=== PATIENT | male | born 1995 | race Caucasian/White ===

== ENCOUNTER 2017-04-26 10:42 | Emergency (ER) | payer BC ==
[~2017-04-26] VITALS: Ht 182.9 cm; Wt 69.6 kg
[2017-04-26 11:01] VITALS: TEMP 37.5; Ht 182.9 cm; Wt 69.6 kg
[2017-04-26] MEDS ORDERED: IBUPROFEN 600 MG TAB PO STA (12:39)
--- NOTE | 2017-04-26 12:44 | EMERGENCY ROOM VISIT NOTE ---
History Report prepared by Sally: Grace Damian Under the Supervision of: Dr. Jessi Pineda M.D. First contact with patient: 12:33 Chief Complaint: ILLNESS Stated Complaint: SWOLLEN LYMPH NODE History of Present Illness The patient is a 21 year old male who presents to the Emergency Room with complaints of a constant swollen lymph node beginning a couple days ago. The patient notes pain with swallowing. He denies having the flu recently. He denies any fever, vomiting, respiratory difficulties, or pain with biting down. The patient has no active medical problems. The patient is fully vaccinated. Source of History: patient Onset: a couple days ago Position: other (swollen lymph node) Timing: constant Modifying Factors (Worsening): other (swallowing) Associated Symptoms: + sorethroat, No fevers, No SOB, No vomiting Review of Systems See HPI for pertinent positives & negatives. A total of 10 systems reviewed and were otherwise negative. Past Medical & Surgical Medical Problems: (1) No Known Active Medical Problems Family History Patient reports no known family medical history. Social History Smoking Status: Never Smoker Marital Status: single Housing Status: lives with roommate Occupation Status: [employer] student Current/Historical Medications Scheduled Amoxicillin & Pot Clavulanate (Augmentin 875-125 mg), 875 MG PO BID Allergies Coded Allergies: No Known Allergies (Unverified , 04/26/17) Physical Exam Vital Signs Date Time Temp Pulse Resp B/P (MAP) Pulse Ox O2 Delivery O2 Flow Rate FiO2 04/26/17 14:10 95 18 144/79 100 04/26/17 12:32 101 150/88 98 Room Air 04/26/17 11:01 37.5 104 18 138/68 97 Room Air Physical Exam Vital signs reviewed. General: Well-appearing male, in no significant distress. HEENT: No scleral icterus, PERRLA, neck supple. Atraumatic. 2 cm palpable lymph node to the left submandibular region, no surrounding erythema mildly tender. No submental swelling no airway impingement. Cardiovascular: Regular rate and rhythm, no extra sounds. Pulmonary: Clear to auscultation bilaterally, normal work of breathing. Neurologic: Patient awake alert and oriented x 3, no meningeal signs Skin: Warm, dry, no rash Medical Decision & Procedures Laboratory Results Laboratory results per my review. Medications Administered Medications (Trade) Dose Ordered Sig/Any Route Start Time Stop Time Status Last Admin Dose Admin Ibuprofen (Motrin Tab) 600 mg NOW STAT PO 04/26/17 12:39 04/26/17 12:40 DC 04/26/17 12:56 600 MG Amoxicillin/ Clavulanate Potassium (Augmentin Tab) 875 mg NOW ONCE PO 04/26/17 12:45 04/26/17 12:46 DC 04/26/17 12:56 875 MG ED Course 1236: Past medical records reviewed. The patient was evaluated in room B9. A complete history and physical examination was performed. 1239: Ordered Ibuprofen 600 mg PO. 1245: Ordered Augmentin Tab 875 mg. 1330: Upon reevaluation, the patient appeared to have improvement of his symptoms. I discussed findings with him. He verbalized agreement of the treatment plan. The patient was discharged home. Medical Decision Differential diagnosis: Etiologies such as viral syndrome, tonsillitis, streptococcal pharyngitis, mononucleosis, peritonsillar abscess, retropharyngeal abscess, otitis, pneumonia , influenza, as well as others were entertained. This patient was evaluated and appeared to be in no significant distress. Physical examination is consistent with a lymphadenitis at least one left submandibular node. The patient states the swelling has been acute. Rapid strep swab was obtained and is negative. This will be sent for culture. Patient was given ibuprofen 600 mg orally, Augmentin 875 mg. He was discharged with a prescription for the Augmentin. Patient was advised to follow-up with [facility] within the next several days for reevaluation. He may warrant further evaluation at that time if the swelling is not improving. He will return to the ER for worsening of symptoms or any medical concerns. Medication Reconcilliation Current Medication List: was personally reviewed by me Blood Pressure Screening Patient's blood pressure: Elevated blood pressure Blood pressure disposition: Elevated BP felt to be situational Impression Primary Impression: Lymphadenitis, acute Scribe Attestation The scribe's documentation has been prepared under my direction and personally reviewed by me in its entirety. I confirm that the note above accurately reflects all work, treatment, procedures, and medical decision making performed by me. Departure Information Dispostion Home / Self-Care Prescriptions Amoxicillin & Pot Clavulanate (Augmentin 875-125 mg) 1 Tab Tab 875 MG PO BID for 10 Days, #20 TAB Prov: Jessi Pineda M.D. 04/26/17 Referrals No Doctor, Assigned (PCP) Forms HOME CARE DOCUMENTATION FORM, IMPORTANT VISIT INFORMATION, WORK / SCHOOL INSTRUCTIONS Patient Instructions ED Cervical Adenitis Abx Tx, My [facility] Additional Instructions Diagnosis: Lymphadenitis Augmentin 875 mg twice daily for 10 days. Follow-up with [facility] for reevaluation within the next 2-3 days. Ibuprofen 600 mg every 6 hours as needed for pain or fever. Tylenol 650 mg every 6 hours as needed for pain or fever. Drink plenty of clear fluids and return to the ER for worsening of symptoms or any medical concerns.
[2017-04-26] MEDS ORDERED: AMOXICILLIN/CLAVULANATE TAB 875 MG TAB PO ONE (12:45)
[2017-04-26] MEDS ORDERED: AMOX875T PO (13:24)
[2017-04-26 14:10] VITALS: BP 144/79; PULSE 95; O2SAT 100
== END 2017-04-26 14:11 | disposition home or self-care (01) ==
LOC: C.EDB 10:44
DX: I88.9 Nonspecific lymphadenitis, unspecified (principal)